=== PATIENT | male | born 1980 | race Caucasian/White ===

== ENCOUNTER 2018-08-15 23:04 | Emergency (ER) | payer MEDICAID, SELFPAY ==
[2018-07-14 16:28] VITALS: BMI 32.5
[2018-08-15 23:05] VITALS: BP 158/103; PULSE 105; RESP 16; TEMP 36.8; O2SAT 97; BMI 31.1
[2018-08-15 23:22] VITALS: RESP 20
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
[2018-08-15 23:41] LABS: Bedside Glucose 128 mg/dL (70-110)
[2018-08-15] MEDS: 0.9% Normal Saline 1,000 ML 999 ML IV (23:48)
[2018-08-15] MEDS: LORazepam 2 MG/ML Syringe 0.5 MG IV (23:48)
[2018-08-16 00:09] LABS: Anion Gap 8 (5-15); BUN 20 mg/dL (7-18); BUN/Creat Ratio 12.5 RATIO (10-20); Calcium,Total 8.7 mg/dL (8.5-10.1); Chloride 105 mmol/L (98-107); EST Glomerular Filtration Rate 51 mL/min (>60); Est Glom Filt Rate - Afr Amer 62 mL/min (>60); Estimated Creatinine Clearance 68.03 ml/min; Glucose 114 mg/dL (74-106); Sodium Level 140 mmol/L (136-145)
[2018-08-16 00:14] LABS: Neutrophil % 60.3 % (47-70)
[2018-08-16 00:22] LABS: Hematocrit 45.2 % (40-54); Hemoglobin 15.9 g/dl (13.0-16.5); Mean Corp Hgb Conc 35.2 g/gl (32-36); Mean Corpuscular Hgb 29.2 pg (27.0-32.0); Mean Corpuscular Volume 83.1 fL (80-94); Red Blood Count 5.44 M/mm3 (4.6-6.2); White Blood Count 11.9 K/mm3 (4.4-11.0)
[2018-08-16 00:23] LABS: Basophil% 0.7 % (0-1); Eosinophils% 2.9 % (0-5); Lymphocyte % 27.3 % (19-41); Mean Platelet Vol. 9.5 fl (6.2-12.0); Monocyte% 8.2 % (0-10); Platelet Count 358 K/mm3 (150-450); RBC Distribution Width CV 12.7 % (11.6-14.6); RBC Distribution Width SD 38.2 fl (35.1-43.9)
[2018-08-16 00:24] LABS: Absolute Lymphocyte Count 3.25 X10^3/ul (0.83-4.51); Absolute Neutrophil Count 7.2 X10^3/uL (2.0-7.7); Basophil# 0.08 X10^3/uL; Eosinophil# 0.35 X10^3/uL; Lymphocyte # 3.25 X10^3/ul (4.0); Monocyte# 0.97 X10^3/uL; Neutrophil # 7.17 X10^3/uL (2.7-7.7); POSITIVE COUNT NO; POSITIVE DIFFERENTIAL NO; POSITIVE MORPHOLOGY NO
[2018-08-16 01:26] VITALS: BP 143/84; PULSE 93; RESP 15; O2SAT 97
--- NOTE | 2018-08-16 01:26 | ED.RN ---
PT GIVEN WRITTEN AND VERBAL DISCHARGE INSTRUCTIONS, AND EDUCATED NOT TO DRIVE AFTER HAVING ATIVAN FOR THE NEXT 4-6 HOURS. PT VERBALIZES UNDERSTANDING AND DENIES ANY FURTHER QUESTIONS. PT IV D/C AND COVERED WITH 2X2 GAUZE AND PAPER TAPE. PT DRESSES SELF, REPORTS HIS FRIEND IS COMING TO PICK HIM UP.
--- NOTE | 2018-08-16 14:13 | ED.RN ---
Pt returned at 1400 08/06 with concerns over work excuse. The original excuse showed pt treatment day as 08/06 and was written off for 08/17. There was evidence someone had written on yellow copy showing 08/17-08/15. I verified pt chart he arrived 08/15 at 2305. I wrote a new excuse to reflect off work 08/15. He starts shift at 1430 and did not indicate any reason not to return today.
--- NOTE | 2018-08-17 14:22 | ED.RN ---
pt called in today concerned about a work note and getting the 27 and 28 covered. pt stated that we are fucking with my job because this nurse and the nurse yesterday would not give him a 2 day work note.
== END 2018-08-16 01:28 | disposition home or self-care (01) ==
PROVIDERS: Emergency Provider Emergency Medicine; Family Provider Family Medicine; PCP Family Medicine
DX: F15.10 Other stimulant abuse, uncomplicated (principal); S09.90XA Unspecified injury of head, initial encounter; Y04.2XXA Assault by strike against or bumped into by another person, initial encounter; Y93.9 Activity, unspecified; Y92.9 Unspecified place or not applicable; Y99.9 Unspecified external cause status; I10 Essential (primary) hypertension; E78.5 Hyperlipidemia, unspecified; F17.200 Nicotine dependence, unspecified, uncomplicated
CPT/HCPCS: 70450; 80048; 82962; 85025; 96361; 96374; 99285; J7030; A4216

== ENCOUNTER 2018-08-25 03:34 | Emergency (ER) | payer MEDICAID, SELFPAY ==
[2018-08-25 03:36] VITALS: BP 137/71; PULSE 103; RESP 18; TEMP 37.4; O2SAT 97; BMI 29.5
--- NOTE | 2018-08-25 04:09 | RAD_ITS ---
STUDY: X-RAY CHEST REASON FOR EXAM: Male, 38 years old. Right-sided chest pain TECHNIQUE: 1 view COMPARISON: 05/10/2014 FINDINGS: The lungs are clear and expanded. There is no demonstrated pleural abnormality. Normal size heart. Normal mediastinum and denise. Normal visualized pulmonary arteries. Normal visualized aortic arch and descending thoracic aorta. Normal visualized thoracic spine. Normal visualized ribs, clavicles, and shoulders. There is no demonstrated abnormality of the visualized soft tissue structures of the upper abdomen. RAD/Chest 1 View (Portable) IMPRESSION: Normal x-ray examination of the chest. No acute findings in the lungs Electronically Signed: Tang Wilson MD at 5:18 EST Tel , Service support ,
--- NOTE | 2018-08-25 04:10 | EKG12_ITS ---
Test Reason : CHEST OTHER Blood Pressure : / mmHG Vent. Rate : 097 BPM Atrial Rate : 097 BPM P-R Int : 136 ms QRS Dur : 092 ms QT Int : 342 ms P-R-T Axes : 024 044 025 degrees QTc Int : 434 ms Normal sinus rhythm Normal ECG Confirmed by DALILA BHAT MD ([id number]), legal editor JAYLEN RAMOS ([id number]) on 08/27/2018 9:10:24 AM Referred By: TESS Confirmed By:DALILA BHAT MD
[2018-08-25] MEDS: Morphine 4 MG/ML Syringe IV (04:26)
[2018-08-25 04:28] VITALS: BP 141/69; PULSE 102; RESP 33; O2SAT 98
[2018-08-25 04:32] LABS: Absolute Lymphocyte Count 0.84 X10^3/ul (0.83-4.51); Absolute Neutrophil Count 5.2 X10^3/uL (2.0-7.7); Basophil# 0.03 X10^3/uL; Basophil% 0.4 % (0-1); Eosinophil# 0.45 X10^3/uL; Eosinophils% 6.4 % (0-5); Hematocrit 40.4 % (40-54); Hemoglobin 13.5 g/dl (13.0-16.5); Lymphocyte # 0.84 X10^3/ul (4.0); Mean Corp Hgb Conc 33.4 g/gl (32-36); Mean Corpuscular Hgb 28.2 pg (27.0-32.0); Mean Corpuscular Volume 84.5 fL (80-94); Mean Platelet Vol. 9.9 fl (6.2-12.0); Monocyte# 0.46 X10^3/uL; Monocyte% 6.6 % (0-10); Neutrophil % 74.2 % (47-70); Platelet Count 250 K/mm3 (150-450); RBC Distribution Width SD 39.8 fl (35.1-43.9); Red Blood Count 4.78 M/mm3 (4.6-6.2)
[2018-08-25 04:36] LABS: Allen Test POS; Base Excess -4 mmol/L (-2 to +2); Bicarbonate 21.3 mmol/L (22-26); Blood Gas Specimen Type ART; O2 Delivery Device Room Air; PO2 69 mmHG (75-100); SITE R Radial; SO2 93 % (95-99); Time Given 435; Total Carbon Dioxide 22 mmol/L; pCO2 36.6 mmHg (35-45); pH 7.37 (7.35-7.45)
[2018-08-25 04:37] LABS: POSITIVE COUNT NO; POSITIVE DIFFERENTIAL NO; POSITIVE MORPHOLOGY NO
--- NOTE | 2018-08-25 04:44 | ED.DCSUM_ITS ---
History of Present Illness Chief Complaint: Chest Other Informant: Patient, Friend Onset: Today Context: Sudden Onset - about 8-10 hrs ago, pt unsure exactly Timing: Continuous Quality: felt sudden pop in right lateral side of chest, followed by pain Location: left lateral lower chest Current Severity: Severe Maximum Severity: Severe Worsened by: deep inspiration, coughing Relieved by: nothing Associated Symptoms: sob. cough x couple days. no fevers, earache, ST. Narrative: Friend or significant other states that he has been acting a little out of it today. They both deny doing any drugs, although both of them have been seen in the ER separately in the past for drug abuse specifically. Patient states he has emphysema; unknown if that is true or not. He has an albuterol MDI and several bottles each for all of his medications, which appeared to be for hypertension, hyperlipidemia, and depression. History is somewhat limited because of the patient's somnolence. - Past Medical History (1) Depression Status: Chronic (2) HTN (hypertension) Status: Chronic (3) Hyperlipidemia Status: Chronic Past Medical History - Allergies and Home Meds Allergies/Adverse Reactions: Allergies naproxen Adverse Reaction (Verified 08/25/18 03:36) Nausea Primary Care Physician: Lazarus Can MD [Primary Care Provider] - Smoking Status: Current every day smoker Drugs: - - pt denies Review of Systems ROS: Unable to Obtain - able to obtain, but limited due to somnolence General: Reports: Malaise. Denies: Chills, Fever Eyes: Denies: Visual changes - bilaterally, Diplopia ENT: Denies: Bilateral ear pain, Rhinorrhea, Sore throat Cardiovascular: Reports: Chest pain. Denies: Palpitations Respiratory: Reports: Dyspnea, Cough. Denies: Sputum Gastrointestinal: Denies: Abdominal pain, Vomiting, Diarrhea Musculoskeletal: Denies: Neck pain, Back pain, Swelling, Extremity Pain Skin: Denies: Abscess, Wounds Neurological: Denies: Weakness, Numbness Psych: Denies: Suicidal thoughts, Suicidal ideations Allergy: Denies: Swelling of the mouth, Swelling of the tongue Physical Exam Vital Signs/Narrative: Vital Signs Temp Pulse Resp BP Pulse Ox 08/25/18 04:28 102 H 33 H 141/69 H 98 08/25/18 03:36 99.3 F H 103 H 18 137/71 H 97 Inital Vital Signs reviewed: Yes General: Well nourished, Well developed, - - somnolent. alerts to voice. Head: Normocephalic, Atraumatic Eyes: Perrl, EOMI, - - horiz nystagmus present ENT: Moist mucous membranes, No rhinorrhea Neck: Supple, Nontender, No JVD Cardiovascular: Regular rate, Regular rhythm, No murmurs, Tachycardia Respiratory: Chest nontender, Diminished - on right, - - mild resp distress. Negative for: Rales, Rhonchi, Wheezing Abdomen: Soft, Nontender, Nondistended, Normal bowel sounds Back: Nontender, Normal Inspection Extremities: Nontender - incl no calf tenderness, No edema Skin: Normal color, No rash Neurological: Cranial nerves II-XII grossly intact, Normal Strength, Normal Sensation, Lethargic - alerts to voice / light stim Psychological: - - appears either intoxicated or under influence of substance Diagnostic/Tx/Re-eval Impressions Chest X-Ray 08/25/18 04:09 IMPRESSION: Normal x-ray examination of the chest. No acute findings in the lungs Electronically Signed: Tang Wilson MD at 5:18 EST Tel , Service support , Chest CTA 08/25/18 05:15 IMPRESSION: Normal CTA chest examination, without a demonstrated pulmonary embolism or arterial dissection allowing for different technique as above. Cystic lesion within the spleen, slightly increased in size since previous examination. May be a cyst or hemangioma. Stable fatty liver. Electronically Signed: Gypsy Upton MD at 6:34 EST , Service support , 08/25/18 04:09 Chest 1 View (Portable) [RAD] Stat 08/25/18 05:15 CTA Chest W/WO Contrast [CT] Stat Laboratory Results 08/25/18 08/25/18 08/25/18 04:20 04:20 04:20 WBC 7.0 RBC 4.78 Hgb 13.5 Hct 40.4 MCV 84.5 MCH 28.2 MCHC 33.4 RDW 13.0 RDW Differential 39.8 Plt Count 250 MPV 9.9 Immature Gran % (Auto) 0.400 Neut % (Auto) 74.2 H Lymph % (Auto) 12.0 L [place] % (Auto) 6.6 Eos % (Auto) 6.4 H Baso % (Auto) 0.4 Absolute Neuts (auto) 5.2 Absolute Lymphs (auto) 0.84 Total Counted Not Reportable D-Dimer Quant (PE/DVT) Specimen Type Sample Site pH Bicarbonate Actual POC Total CO2 Base Excess O2 Saturation ABG pCO2 ABG pO2 [place] Test O2 Delivery Device Blood Gas Notified Whom Blood Gas Notified Time Sodium 138 Potassium 3.9 Chloride 103 Carbon Dioxide 25.0 Anion Gap 10 BUN 15 Creatinine 0.98 Estim Creat Clear Calc 111.08 Est GFR (MDRD) Af Amer 110 Est GFR (MDRD) Non-Af 91 BUN/Creatinine Ratio 15.3 Glucose 204 H Calcium 8.3 L Urine Opiates Screen Urine Methadone Screen Ur Barbiturates Screen Ur Phencyclidine Scrn Ur Amphetamines Screen U Methamphetamin-MDMA U Benzodiazepines Scrn Urine Cocaine Screen U Cannabinoids Screen Ur Drug Screen Comment Ethyl Alcohol < 3.0 08/25/18 08/25/18 08/25/18 04:20 04:20 04:33 WBC RBC Hgb Hct MCV MCH MCHC RDW RDW Differential Plt Count MPV Immature Gran % (Auto) Neut % (Auto) Lymph % (Auto) [place] % (Auto) Eos % (Auto) Baso % (Auto) Absolute Neuts (auto) Absolute Lymphs (auto) Total Counted D-Dimer Quant (PE/DVT) 1.36 H* Specimen Type ART Sample Site R Radial pH 7.37 Bicarbonate Actual 21.3 L POC Total CO2 22 Base Excess -4 L O2 Saturation 93 L ABG pCO2 36.6 ABG pO2 69 L [place] Test POS O2 Delivery Device Room Air Blood Gas Notified Whom ED Blood Gas Notified Time 435 Sodium Potassium Chloride Carbon Dioxide Anion Gap BUN Creatinine Estim Creat Clear Calc Est GFR (MDRD) Af Amer Est GFR (MDRD) Non-Af BUN/Creatinine Ratio Glucose Calcium Urine Opiates Screen NEGATIVE Urine Methadone Screen NEGATIVE Ur Barbiturates Screen NEGATIVE Ur Phencyclidine Scrn NEGATIVE Ur Amphetamines Screen POSITIVE H U Methamphetamin-MDMA POSITIVE H U Benzodiazepines Scrn NEGATIVE Urine Cocaine Screen NEGATIVE U Cannabinoids Screen NEGATIVE Ur Drug Screen Comment Ethyl Alcohol - Medical Decision Making I ordered portable stat chest x-ray to be done first due to my concern for a possible spontaneous pneumothorax. I was in the room when x-ray performed, it appears normal. Therefore I have ordered nebulizer treatment, pain medication, and further workup. On reevaluation, he feels better after the breathing treatment and morphine. Toxicology shows methamphetamine. This may explain the patient's demeanor and disposition/general appearance. His ABG is reassuringly normal, there is no hypercapnia and his pH is within normal range. His d-dimer is significantly elevated, therefore CT angiography of the chest is indicated given his symptoms and tachycardia. On reevaluation, his pain and dyspnea are significant he better and he is more alert now. I told him that he had methamphetamine in his system; he states, a few days ago as he nods. CT angiography is negative for pulmonary embolus, infiltrate, other acute abnormalities. He is doing better. Still hurts to breathe but not nearly as bad as earlier. Will prescribe him naproxen, he has an albuterol inhaler to use as needed for shortness of breath, advised to follow-up with a doctor. ED Disposition - Plan for ED Patient: Disposition: Home or Assisted Living Chief Complaint: Chest Other Diagnosis: Pleurisy, Viral URI with cough, Methamphetamine abuse Instructions: ED Chest Pain Pleurisy, ED URI Viral Prescriptions: Ibuprofen 600 mg PO Q8H PRN PRN #15 tab PRN Reason: Pain Referrals: Lazarus Can MD [Primary Care Provider] - 1 Week if not improving
[2018-08-25 04:46] LABS: Anion Gap 10 (5-15); BUN 15 mg/dL (7-18); BUN/Creat Ratio 15.3 RATIO (10-20); Calcium,Total 8.3 mg/dL (8.5-10.1); Chloride 103 mmol/L (98-107); Creatinine, Serum 0.98 mg/dL (0.70-1.30); EST Glomerular Filtration Rate 91 mL/min (>60); Est Glom Filt Rate - Afr Amer 110 mL/min (>60); Estimated Creatinine Clearance 111.08 ml/min; Glucose 204 mg/dL (74-106); Potassium 3.9 mmol/L (3.5-5.1); Sodium Level 138 mmol/L (136-145)
[2018-08-25 04:53] VITALS: PULSE 64; RESP 18
[2018-08-25] MEDS: Ipratropium/Albuterol Sulfate 3 ML AMPUL.NEB INHALATION (04:53)
[2018-08-25 05:07] LABS: Alcohol, Blood (Medical)-Serum < 3.0 mg/dL
[2018-08-25 05:09] LABS: D-Dimer Quantitative (DVT/PE) 1.36 FEU/ug/m (0.27-0.49)
[2018-08-25 05:11] LABS: Amphetamine Urine VISTA POSITIVE (<1000 ng/mL); Barbiturate Urine VISTA NEGATIVE (< 200 ng/mL); Benzodiazepine Urine VISTA NEGATIVE (< 200 ng/mL); Cocaine Urine VISTA NEGATIVE (< 300 ng/mL); Ecstacy Urine VISTA POSITIVE (< 500 ng/mL); Methadone Urine VISTA NEGATIVE (< 300 ng/mL); PCP Urine VISTA NEGATIVE (< 25 ng/mL); THC Urine VISTA NEGATIVE (< 50 ng/mL); Vista UDS pH Range 5
--- NOTE | 2018-08-25 05:11 | ED.RN ---
D-DIMER OF 1.36 REPORTED TO . VERBALIZED UNDERSTANDING
--- NOTE | 2018-08-25 05:15 | CT_ITS ---
STUDY: CTA CHEST REASON FOR EXAM: Male, 38 years old. Right-sided chest pain after coughing 2 days ago. Shortness of breath, elevated d-dimer, positive for meth RADIATION DOSAGE (If Supplied By Facility): CTDIvol = ( 16.29 ) mGy, DLP = ( 598.15 ) mGycm TECHNIQUE: The examination was performed with the intravenous administration of 100 ml of Isovue 370 contrast material. Post-processing of the angiographic images was performed, with multiplanar reformation and 3D reconstruction. There is image blurring as a result of cardiac motion. Diagnostic accuracy is somewhat reduced. However, there is substantial diagnostic information remaining available on this study. Stable nonacute findings as above. Electrocardiographically gated technique was not utilized. Individualized dose optimization techniques were used for this CT. COMPARISON: CT abdomen and pelvis 08/25/2016 FINDINGS: Normal enhancement of the main pulmonary artery and right and left pulmonary arteries. Normal enhancement of the bilateral peripheral pulmonary arteries. There is no demonstrated pulmonary embolism. Normal thoracic aorta and visualized great vessels. There is no demonstrated aortic dissection. Normal heart and pericardium. Normal mediastinum. Normal hilar regions. Normal visualized trachea and bronchi. The lungs are under expanded. Normal pulmonary parenchyma. Normal pleura. Normal chest wall structures. No right-sided rib fractures detected. Normal osseous structures. Ovoid low-attenuation in the upper spleen of 2 x 3.5 cm measuring near water density, slightly increased in size. Liver is low attenuated. CT/CTA Chest W/WO Contrast IMPRESSION: Normal CTA chest examination, without a demonstrated pulmonary embolism or arterial dissection allowing for different technique as above. Cystic lesion within the spleen, slightly increased in size since previous examination. May be a cyst or hemangioma. Stable fatty liver. Electronically Signed: Gypsy Upton MD at 6:34 EST , Service support ,
[2018-08-25] MEDS: 0.9% Normal Saline 1,000 ML 999 ML IV (05:36)
[2018-08-25 06:37] VITALS: BP 118/65; PULSE 94; RESP 17; O2SAT 96
[2018-08-25 07:11] VITALS: BP 133/58; PULSE 71; RESP 16; O2SAT 97
== END 2018-08-25 07:12 | disposition home or self-care (01) ==
PROVIDERS: Emergency Provider Emergency Medicine; Family Provider Family Medicine; PCP Family Medicine
DX: R09.1 Pleurisy (principal); J06.9 Acute upper respiratory infection, unspecified; R05 Cough; F15.10 Other stimulant abuse, uncomplicated; F17.200 Nicotine dependence, unspecified, uncomplicated; E78.5 Hyperlipidemia, unspecified; I10 Essential (primary) hypertension; F32.9 Major depressive disorder, single episode, unspecified
CPT/HCPCS: 36600; 71045; 71275; 80048; 80307; 80320; 82803; 85025; 85379; 93005; 94640; 96361; 96374; 99285; J7030; Q9967; A4216; G0480

== ENCOUNTER 2018-11-13 11:34 | Emergency (ER) | payer MEDICAID, SELFPAY ==
[2018-11-13 11:37] VITALS: BP 141/76; PULSE 84; RESP 15; TEMP 37; O2SAT 96; BMI 30.8
--- NOTE | 2018-11-13 11:37 | CT_ITS ---
STUDY: CT ABDOMEN AND PELVIS WITH CONTRAST REASON FOR EXAM: Male, 38 years old. Abdominal pain. RADIATION DOSAGE (If Supplied By Facility): CTDIvol = ( 12.82 ) mGy, DLP = ( 1044.37 ) mGycm TECHNIQUE: Transaxial images were obtained from the dome of the diaphragm to the symphysis pubis with oral contrast. 100 IV/Oral Isovue 300 was administered. Sagittal and coronal images were reconstructed. Individualized dose optimization techniques were used for this CT. COMPARISON: None. FINDINGS: Mild degree of increased markings at the lung bases suggestive of bibasilar atelectasis. The visualized portions of the heart are within normal limits. There is decreased attenuation of the liver consistent with steatosis. Hepatomegaly. The gallbladder is contracted. Small amount of pericholecystic fluid. Stable 2 cm x 1.7 cm x 1.3 cm cyst in the superior aspect of the spleen. Serpiginous structure is seen in the region of the splenic hilum suggestive of a varices. Normal pancreas. Normal bilateral adrenal glands. Normal right kidney. Punctate calculus in the mid inferior aspect of the left kidney. Normal visualized stomach. Normal small intestine. There are multiple colonic diverticula consistent with diverticulosis. The patient is status post appendectomy. There is scattered atherosclerotic calcification of the abdominal aorta, without a demonstrated aneurysm. Normal inferior vena cava. There is borderline retroperitoneal lymphadenopathy with enlarged nodes no greater than 10mm in the short axis diameter. Normal urinary bladder. Small amount of fluid is seen in the pelvis. Normal abdominal wall. There are degenerative changes of the visualized lumbar spine. CT/Abdomen/Pelvis WITH Contrast IMPRESSION: Hepatomegaly and fatty infiltration of the liver. Contracted gallbladder with a small amount of pericholecystic fluid. Stable splenic cysts. Findings suggestive of varices in the region of the splenic hilum. Electronically Signed: Harrison Kaba, at 14:05 EDT , Service support ,
--- NOTE | 2018-11-13 11:44 | ED.DCSUM_ITS ---
History of Present Illness Chief Complaint: Abd Pain Detail of Chief Complaint: Generalized pain started 1 week ago Informant: Patient, Significant Other Onset: - - Generalized pain 1 week ago. Abdominal pain past 24-48 hours. Dark urine and white/silver colored stool this morning he also reports a 75 pound weight loss. Context: Gradual Onset, Sudden Onset Timing: - - Read onset Quality: Generalized pain and crampy abdominal pain and back pain Location: Generalized Current Severity: Mild Maximum Severity: Severe Worsened by: Activity Relieved by: Nothing Associated Symptoms: Read narrative and review of systems Narrative: Patient is a 38-year-old gentleman who admits to IV drug use. Has not used any drugs in the past 3 weeks. He is never been tested for HIV or hepatitis. He does report nausea without vomiting. He is concerned because of white/silver colored stool and dark colored urine. He took a picture of his stool and it is white/Kandi in color. Urine is dark suggestive of bilirubin. Patient also noted his eyes were yellow. Onset of yellow eyes uncertain. He denies fever or chills. Mild sweats. He denies headache, ocular, visual auditory symptoms. Denies trouble with speech or swallowing. He denies cardiac respiratory symptoms. He is a smoker. He denies dysuria, frequency, urgency or hematuria. He noted his skin is yellow in color. At 1210 significant other entered the position room and informed me that she has history of hepatitis C. She also told me that he is unaware that she has hepatitis C. She states she would inform him. - Past Medical History (1) Depression Status: Chronic (2) HTN (hypertension) Status: Chronic (3) Hyperlipidemia Status: Chronic Past Medical History - Allergies and Home Meds Allergies/Adverse Reactions: Allergies naproxen Adverse Reaction (Verified 11/13/18 11:40) Nausea Primary Care Physician: Lazarus Can MD [NON-STAFF] - Prior records reviewed: Yes Surgical History: no surgical history Lives: Spouse/ Significant Other Smoking Status: Current every day smoker Alcohol: None Drugs: - Review of Systems General: Reports: Malaise, Sweats, Weight loss. Denies: Chills, Fever Eyes: Reports: - - Yellow appearance to eyes. Denies: Visual changes - bilaterally, Blurred Vision - bilaterally, Diplopia ENT: Denies: Rhinorrhea, Sore throat Cardiovascular: Denies: Chest pain, Palpitations Respiratory: Denies: Dyspnea, Cough, Dyspnea on exertion Gastrointestinal: Reports: Abdominal pain, Nausea, - - Stool is white/silver in color Genitourinary: Denies: Dysuria, Hematuria, Frequency Musculoskeletal: Reports: Myalgias, Arthralgias, Back pain Skin: Reports: - - Yellow appearing skin. Denies: Rash, Wounds Neurological: Reports: Weakness. Denies: Headache, Parasthesia, Numbness Psych: Reports: Depression. Denies: Anxiety Hematologic: Denies: Easy bruising, Easy bleeding Physical Exam Vital Signs/Narrative: Vital Signs Temp Pulse Resp BP Pulse Ox 11/13/18 11:37 98.6 F 84 15 141/76 H 96 Inital Vital Signs reviewed: Yes General: Well nourished, Well developed, No Acute Distress Head: Normocephalic, Atraumatic Eyes: Perrl, EOMI, Scleral icterus. Negative for: Pale conjunctiva ENT: No rhinorrhea, Dry mucous membranes. Negative for: TM's clear, Nasal congestion Neck: Supple, Nontender Cardiovascular: Regular rate, Regular rhythm, No murmurs Respiratory: No distress, CTA bilaterally, Chest nontender Abdomen: Soft, Nondistended, No masses, Tender, - - Slight tympana to percussion.. Negative for: Hepatomegaly, Splenomegaly, Mass, Pulsatile mass Rectal: - - Rectal exam was not performed since he took a picture of his stool and as previously reported white/silver in color. Back: Nontender, Normal Inspection. Negative for: CVA tenderness Extremities: Nontender, No edema Skin: No rash, Jaundice, - - There is mottling with delayed capillary refill. Neurological: Alert, Oriented x3, Cranial nerves II-XII grossly intact, Normal Strength, Normal Sensation, Normal DTR Psychological: Normal affect, Normal Mood Diagnostic/Tx/Re-eval Impressions Abdomen/Pelvis CT 11/13/18 11:37 IMPRESSION: Hepatomegaly and fatty infiltration of the liver. Contracted gallbladder with a small amount of pericholecystic fluid. Stable splenic cysts. Findings suggestive of varices in the region of the splenic hilum. Electronically Signed: Harrison Kaba, at 14:05 EDT , Service support , 11/13/18 11:37 Abdomen/Pelvis WITH Contrast [CT] Stat Laboratory Results 11/13/18 11/13/18 11/13/18 12:25 12:25 12:50 WBC 6.0 RBC 5.59 Hgb 15.3 Hct 45.9 MCV 82.1 MCH 27.4 MCHC 33.3 RDW 16.1 H RDW Differential 48.5 H Plt Count 118 L MPV 11.6 Immature Gran % (Auto) 0.200 Neut % (Auto) 49.3 Lymph % (Auto) 37.6 [place] % (Auto) 10.6 H Eos % (Auto) 1.5 Baso % (Auto) 0.8 Absolute Neuts (auto) 3.0 Absolute Lymphs (auto) 2.27 Total Counted Not Reportable PT 14.8 INR 1.2 Sodium 137 Potassium 3.6 Chloride 103 Carbon Dioxide 25.0 Anion Gap 9 BUN 9 Creatinine 0.86 Estim Creat Clear Calc 126.58 Est GFR (MDRD) Af Amer 128 Est GFR (MDRD) Non-Af 105 BUN/Creatinine Ratio 10.5 Glucose 118 H Lactic Acid Calcium 8.2 L Total Bilirubin 9.00 H AST 1224 H ALT 2055 H Alkaline Phosphatase 223 H Total Protein 6.8 Albumin 3.0 L Globulin 3.8 Albumin/Globulin Ratio 0.8 L 11/13/18 12:50 WBC RBC Hgb Hct MCV MCH MCHC RDW RDW Differential Plt Count MPV Immature Gran % (Auto) Neut % (Auto) Lymph % (Auto) [place] % (Auto) Eos % (Auto) Baso % (Auto) Absolute Neuts (auto) Absolute Lymphs (auto) Total Counted PT INR Sodium Potassium Chloride Carbon Dioxide Anion Gap BUN Creatinine Estim Creat Clear Calc Est GFR (MDRD) Af Amer Est GFR (MDRD) Non-Af BUN/Creatinine Ratio Glucose Lactic Acid 1.6 Calcium Total Bilirubin AST ALT Alkaline Phosphatase Total Protein Albumin Globulin Albumin/Globulin Ratio - Medical Decision Making With history of IV drug use, weight loss, jaundice generalized pain abdominal pain with white/silver colored stool need to be concerned about pancreatic cancer and specifically cancer of the ampulla. Also need to evaluate for hepatitis, HIV. Workup will include CT of the abdomen pelvis with p.o. and IV contrast, appropriate labs and will obtain a PT/INR to assess liver function. In light of liver enzymes, bilirubin and no evidence of lymphadenopathy or malignancy patient's symptoms are consistent with hepatitis and probably hepatitis C that he contracted from his significant other. This may also represent hepatitis B as he is an IV drug user. There was also evidence of varices. This is in all likely secondary to the acute liver injury. ED Disposition - Plan for ED Patient: Disposition: Home or Assisted Living Diagnosis: Acute hepatitis, Jaundice due to hepatitis, Esophageal varices Instructions: ED Hepatitis Viral Type Pending, Esophageal Varices Referrals: Lazarus Can MD [NON-STAFF] - En Beauchamp MD [Primary Care Provider] - 1-2 Weeks
[2018-11-13] MEDS: Morphine 4 MG/ML Syringe IV (11:56)
[2018-11-13] MEDS: Ondansetron 4 MG/2 ML Vial IV (11:56)
[2018-11-13 12:54] LABS: Absolute Lymphocyte Count 2.27 X10^3/ul (0.83-4.51); Basophil# 0.05 X10^3/uL; Basophil% 0.8 % (0-1); Eosinophil# 0.09 X10^3/uL; Eosinophils% 1.5 % (0-5); Hematocrit 45.9 % (40-54); Hemoglobin 15.3 g/dl (13.0-16.5); Lymphocyte # 2.27 X10^3/ul (4.0); Lymphocyte % 37.6 % (19-41); Mean Corp Hgb Conc 33.3 g/gl (32-36); Mean Corpuscular Hgb 27.4 pg (27.0-32.0); Mean Corpuscular Volume 82.1 fL (80-94); Mean Platelet Vol. 11.6 fl (6.2-12.0); Monocyte# 0.64 X10^3/uL; Monocyte% 10.6 % (0-10); Neutrophil # 2.98 X10^3/uL (2.7-7.7); Neutrophil % 49.3 % (47-70); POSITIVE COUNT NO; POSITIVE DIFFERENTIAL NO; POSITIVE MORPHOLOGY NO; Platelet Count 118 K/mm3 (150-450); RBC Distribution Width CV 16.1 % (11.6-14.6); RBC Distribution Width SD 48.5 fl (35.1-43.9); Red Blood Count 5.59 M/mm3 (4.6-6.2)
[2018-11-13 13:13] LABS: ALB/GLOB Ratio 0.8 RATIO (0.9-2.4); AST(SGOT) 1224 U/L (15-37); Alanine Aminotransfer ALT/SGPT 2055 U/L (16-61); Alkaline Phosphatase 223 U/L (45-117); Anion Gap 9 (5-15); BUN 9 mg/dL (7-18); BUN/Creat Ratio 10.5 RATIO (10-20); Calcium,Total 8.2 mg/dL (8.5-10.1); Chloride 103 mmol/L (98-107); Creatinine, Serum 0.86 mg/dL (0.70-1.30); EST Glomerular Filtration Rate 105 mL/min (>60); Est Glom Filt Rate - Afr Amer 128 mL/min (>60); Estimated Creatinine Clearance 126.58 ml/min; Globulin 3.8 g/dL (2.2-4.2); Glucose 118 mg/dL (74-106); Potassium 3.6 mmol/L (3.5-5.1); Protein, Total 6.8 g/dL (6.4-8.2); Sodium Level 137 mmol/L (136-145)
[2018-11-13 13:15] LABS: International Normalized Ratio 1.2; Prothrombin Time (Protime)PT. 14.8 SECONDS (11.7-14.9)
[2018-11-13 13:34] LABS: Lactic Acid 1.6 mmol/L (0.4-2.0)
[2018-11-13 13:55] VITALS: BP 130/74; PULSE 75; RESP 21; O2SAT 97
[2018-11-13 14:48] VITALS: BP 132/82; PULSE 73; RESP 22; O2SAT 97
[2018-11-15 06:07] LABS: Hepatitis A AB, Total Negative (Negative); Hepatitis A IgM Antibody Negative (Negative); Hepatitis B Core AB IgM Positive (Negative); Hepatitis B Core Ab Total Positive (Negative); Hepatitis C Ab <0.1 s/co ratio (0.0-0.9)
[2018-11-15 15:04] LABS: Hep B Surface Antibodies Non Reactive (.)
[2018-11-15 15:05] LABS: HEPATITIS B SURFACE AG Positive (Negative)
== END 2018-11-13 14:58 | disposition home or self-care (01) ==
PROVIDERS: Emergency Provider Emergency Medicine; Family Provider Family Medicine; PCP Family Medicine
DX: K75.9 Inflammatory liver disease, unspecified (principal); I85.00 Esophageal varices without bleeding; F17.200 Nicotine dependence, unspecified, uncomplicated; E78.5 Hyperlipidemia, unspecified; I10 Essential (primary) hypertension; F32.9 Major depressive disorder, single episode, unspecified; Z86.19 Personal history of other infectious and parasitic diseases
CPT/HCPCS: 74177; 80053; 83605; 85025; 85610; 86704; 86705; 86706; 86708; 86709; 86803; 87340; 99285; J7030; J7040; Q9967; A4216; J2405

== ENCOUNTER 2018-11-19 19:22 | Emergency (ER) | payer MEDICAID, SELFPAY ==
[2018-11-19 19:24] VITALS: BP 155/97; PULSE 96; RESP 24; TEMP 36.2; O2SAT 98; BMI 30.5
--- NOTE | 2018-11-19 19:53 | CT_ITS ---
STUDY: CT ABDOMEN AND PELVIS WITHOUT CONTRAST REASON FOR EXAM: Male, 38 years old. Right flank and right upper abdominal pain. RADIATION DOSAGE (If Supplied By Facility): CTDIvol = ( 13.89 ) mGy, DLP = ( 749.60 ) mGycm TECHNIQUE: Transaxial images were obtained from the dome of the diaphragm to the symphysis pubis without oral contrast, and without intravenous contrast. Sagittal and coronal images were reconstructed. Individualized dose optimization techniques were used for this CT. COMPARISON: CT of the abdomen and pelvis dated November 13, 2018. FINDINGS: The visualized lung bases are unremarkable. The visualized portions of the heart are within normal limits. There is hepatomegaly with diffuse hepatic enlargement. The liver measures approximately 27.4 cm in greatest dimension. There may also be hepatic steatosis. The gallbladder appears contracted with possible gallstones, pericholecystic fluid and gallbladder wall thickening similar to previous CT. There are splenic cysts with the largest measuring approximately 2.9 cm in greatest dimension. Normal pancreas. Normal bilateral adrenal glands. Normal right kidney. There is a nonobstructing left-sided renal calculus measuring about 2 mm in size. Normal visualized stomach. Normal small intestine. Normal colon. The appendix is visualized and appears normal. There is minimal atherosclerotic calcification of the abdominal aorta. Normal inferior vena cava. There is borderline retroperitoneal lymphadenopathy with enlarged nodes no greater than 10mm in the short axis diameter. Normal urinary bladder. Normal visualized prostate gland. There is a small umbilical hernia containing fat. There are diffuse degenerative changes of the visualized lumbar spine. CT/Abdomen/Pelvis without Cont IMPRESSION: 1. CT findings suggest sequela of acute or chronic cholecystitis similar to previous study. 2. Hepatomegaly and hepatic steatosis. 3. Unchanged appearance of splenic cysts. 4. Nonobstructing left-sided renal calculus. Electronically Signed: Cindy Eason MD at 21:28 EDT , Service support ,
--- NOTE | 2018-11-19 19:55 | ED.VISSUMM ---
- ER Visit Summary Date of Service: 11/19/18 Chief Complaint: Atraumatic right flank pain History of Present Illness: The patient is a 38 M history of recently diagnosed hepatitis B. Also history of reflux and hypertension. Prior appendectomy. Patient states that he developed right flank pain for the last 3 days. Denies nausea, vomiting or diarrhea. No fever. No melena. He does not believe either had a kidney stone before. Denies any dysuria. No fever. Physical Examination: Well-appearing middle-age male. Vital signs are stable. He is afebrile. He does not look septic or toxic. HEENT exam unremarkable. Neck nontender. Lungs clear to auscultation bilaterally. Heart regular rhythm no murmur. Abdomen soft. Nondistended normal bowel sounds no peritoneal signs. Patient moving all 4 extremities. Neurovascular intact. Skin is jaundiced. Neurologically he is awake and alert with no focal motor deficits. Test Results: CBC no acute abnormality. White count of 8. Hemoglobin 13. Chemistries normal. Normal creatinine and gap. UA showed some blood on the macro but the micro was negative and no signs of infection. CT flank obtained shows a 2 mm left kidney stone but no acute ureteral stones or obstruction. Incidental finding of umbilical hernia. And steatosis of the liver. Emergency Department Course and Treatment: Patient treated with Zofran, morphine and Toradol. Repeat exam at 20 2:29 PM patient is doing well. No distress. Feeling better. Comfortable being discharged home. Follow-up with his doctor I he has a scheduled appointment this week. Treatment Plan: Motrin for pain. Disposition: Discharge Impression: Acute right flank pain of uncertain etiology Recently diagnosed hepatitis B This note was generated with [employer] dictation software. It may contain incorrect words, spelling, and punctuation that were not noted in review of the chart prior to signing ED Disposition - Plan for ED Patient: Referrals: En Beauchamp MD [Primary Care Provider] -
[2018-11-19 20:12] LABS: Bacteria 0 SEEN /hpf (None Seen); Mucous, Urine 0 SEEN /hpf (<or=2+); Squamous Epithelial Cells - UA 0 SEEN /hpf (0-5); White Blood Cells 0 SEEN /hpf (0-5)
[2018-11-19 20:16] LABS: Color, Urine Yellow (Yellow); Glucose, Dipstick Normal (Normal); Ketone-Dipstick Negative (Negative); Leukocyte Esterase-Dipstick 25 /ul (Negative); Nitrite-Dipstick Negative (Negative); Occult Blood-Urine 150 /ul (Negative); Protein-Dipstick Negative (Negative); Specific Gravity, Urine 1.015 (1.002-1.030); Urine Clarity Clear (Clear); Urine Urobilinogen 8 mg/dl (Normal)
[2018-11-19 20:17] LABS: Urine Bilirubin Dipstick 3 mg/dL (Negative)
[2018-11-19 20:25] LABS: Red Blood Cells-Urine 0-5 SEEN /hpf (0-5)
[2018-11-19 20:40] LABS: Absolute Lymphocyte Count 2.68 X10^3/ul (0.83-4.51); Absolute Neutrophil Count 3.9 X10^3/uL (2.0-7.7); Basophil# 0.07 X10^3/uL; Basophil% 0.8 % (0-1); Eosinophil# 0.22 X10^3/uL; Eosinophils% 2.7 % (0-5); Hematocrit 40.9 % (40-54); Hemoglobin 13.6 g/dl (13.0-16.5); Lymphocyte # 2.68 X10^3/ul (4.0); Lymphocyte % 32.5 % (19-41); Mean Corp Hgb Conc 33.3 g/gl (32-36); Mean Corpuscular Hgb 27.8 pg (27.0-32.0); Mean Corpuscular Volume 83.5 fL (80-94); Monocyte# 1.29 X10^3/uL; Monocyte% 15.7 % (0-10); Neutrophil # 3.92 X10^3/uL (2.7-7.7); Neutrophil % 47.6 % (47-70); POSITIVE COUNT NO; POSITIVE DIFFERENTIAL NO; POSITIVE MORPHOLOGY NO; Platelet Count 222 K/mm3 (150-450); RBC Distribution Width CV 18.4 % (11.6-14.6); RBC Distribution Width SD 56.5 fl (35.1-43.9); White Blood Count 8.2 K/mm3 (4.4-11.0)
[2018-11-19 20:44] LABS: Anion Gap 8 (5-15); BUN 15 mg/dL (7-18); BUN/Creat Ratio 16.3 RATIO (10-20); Chloride 105 mmol/L (98-107); Creatinine, Serum 0.92 mg/dL (0.70-1.30); EST Glomerular Filtration Rate 97 mL/min (>60); Est Glom Filt Rate - Afr Amer 117 mL/min (>60); Estimated Creatinine Clearance 118.32 ml/min; Glucose 138 mg/dL (74-106); Potassium 4.2 mmol/L (3.5-5.1); Sodium Level 139 mmol/L (136-145)
[2018-11-19] MEDS: Ondansetron 4 MG/2 ML Vial IV (20:50)
[2018-11-19] MEDS: Ketorolac 30 MG/ML Syringe IV (20:50)
[2018-11-19] MEDS: Morphine 4 MG/ML Syringe 6 MG IV (20:51)
[2018-11-19 20:57] VITALS: PULSE 91; RESP 16; O2SAT 98
--- NOTE | 2018-11-19 22:31 | ED.DEP ---
ED Disposition - Plan for ED Patient: Disposition: Home or Assisted Living Instructions: ED Flank Pain Uncertain Cause Prescriptions: Ibuprofen [Motrin] 600 mg PO Q8H #20 tab Referrals: En Beauchamp MD [Primary Care Provider] - As soon as possible Additional Instructions: Motrin for pain. Follow-up with your doctor.
[2018-11-19 23:15] VITALS: BP 134/85; PULSE 86; RESP 14; O2SAT 99
== END 2018-11-19 23:18 | disposition home or self-care (01) ==
PROVIDERS: Emergency Provider Emergency Medicine; Family Provider Family Medicine; PCP Family Medicine
DX: R10.9 Unspecified abdominal pain (principal); B19.10 Unspecified viral hepatitis B without hepatic coma; K42.9 Umbilical hernia without obstruction or gangrene; K76.0 Fatty (change of) liver, not elsewhere classified; N20.0 Calculus of kidney; K21.9 Gastro-esophageal reflux disease without esophagitis; I10 Essential (primary) hypertension
CPT/HCPCS: 74176; 80048; 81001; 85025; 96374; 96375; 99283; A4216; J2405